=== PATIENT | female | born 1950 | race African-American/Black ===

== ENCOUNTER 2022-07-09 15:00 | Emergency (ER) | payer SELFPAY ==
[~2022-07-09] VITALS: Ht 165.1 cm; Wt 64.0 kg
[2022-07-09] MEDS ORDERED: PREDNISONE 20MG TABLET PO ONE (16:45)
[2022-07-09 17:00] LABS: BASOPHILS % 0.7 % (0.0-2.0); HEMATOCRIT. 48.2 % (36.0-48.0); HEMOGLOBIN. 15.3 g/dL (12.0-16.0); LYMPHOCYTES % 11.8 % (20.0-50.0); MEAN CORPUSCULAR HEMOGLOBIN 29.3 pg (28.0-32.0); MEAN CORPUSCULAR VOLUME 92.3 fL (81.0-99.0); MEAN PLATELET VOLUME 8.6 fl (7.4-10.4); MONOCYTES % 4.4 % (2.0-8.0); NEUTROPHILS % 83.1 % (40.0-76.0); PLATELET 226 x1000/uL (130-400); RED BLOOD CELL COUNT 5.22 mill/uL (4.2-5.4); RED CELL DISTRIBUTION WIDTH 15.3 % (11.6-14.6)
[2022-07-09 17:03] LABS: CHLORIDE 109 mEq/L (98-107)
[2022-07-09 18:44] VITALS: BP 122/77
[2022-07-09] MEDS ORDERED: P50 MT (19:28)
== END 2022-07-09 20:18 | disposition home or self-care (01) ==
LOC: ER 15:00
DX: J44.1 Chronic obstructive pulmonary disease with (acute) exacerbation (principal); Z99.81 Dependence on supplemental oxygen; Z20.822 Contact with and (suspected) exposure to COVID-19
CPT/HCPCS: 36415; 71045; 80048; 85025; 87426; 87804; 99284; J7512